=== PATIENT | female | born 1995 | race Caucasian/White ===

== ENCOUNTER → 2017-10-30 | Outpatient (CLI) | payer OTHER ==
[~2017-10-30] MED LIST: CIPROFLOXACIN500 M1 PO; FLAGYL500 MG PO; IBUPROFEN 800800 MG PO; METFORMIN HCL500 MG PO; NOHOMEMEDICATIONS; NORCO 5-325 TA1 EACH PO
== END ==
LOC: M.ULTRA 13:17
DX: Z01.419 Encounter for gynecological examination (general) (routine) without abnormal findings (principal); N92.1 Excessive and frequent menstruation with irregular cycle; E66.09 Other obesity due to excess calories; Z90.721 Acquired absence of ovaries, unilateral; Z68.34 Body mass index [BMI] 34.0-34.9, adult